=== PATIENT | female | born 1990 | race African-American/Black ===

== ENCOUNTER 2019-09-10 14:44 | Emergency (ER) | payer SELFPAY ==
--- NOTE | 2019-09-10 17:15 | ER Document Report ---
ED Medical Screen (RME) - General Chief Complaint: Chest Pain Stated Complaint: CHEST PAIN Time Seen by Provider: 09/10/19 17:05 Mode of Arrival: Ambulatory Information source: Patient Notes: 28-year-old female with prior history presents emergency department with complaints of left-sided chest pain that started this morning when she woke up. She reports that she was dizzy this past weekend. She reports pain comes and goes. Also complains of some epigastric pain. Denies history of cardiac disease. Denies family history of cardiac disease. Denies energy drinks. Denies recent trip. Patient is not on control. Respiratory rate even unlabored. TRAVEL OUTSIDE OF THE [place] IN LAST 30 DAYS: No - HPI Onset: This morning Onset/Duration: Sudden Quality of pain: Sharp Associated Symptoms: Dizzy/lightheaded Exacerbated by: Denies Relieved by: Denies Similar symptoms previously: No Recently seen / treated by doctor: No Past Medical History - General Information source: Patient Last Menstrual Period: 2 weeks ago - Social History Cigarette use (# per day): No - Has used vapes in the past Frequency of alcohol use: Social Drug Abuse: None Lives with: Family Family history: CAD - grandmother - Medical History Medical History: Negative Review of Systems - Review of Systems Notes: Review HPI for review of systems., All other systems negative Physical Exam - Vital signs Vitals: Temp Pulse Resp BP Pulse Ox 98.5 F 81 16 129/81 H 100 09/10/19 15:47 09/10/19 15:47 09/10/19 15:47 09/10/19 15:47 09/10/19 15:47 - Notes Notes: PHYSICAL EXAMINATION: GENERAL: Well-appearing and in no acute distress HEAD: Atraumatic, normocephalic. EYES: Pupils equal round and reactive to light, extraocular movements intact, sclera anicteric, conjunctiva are normal. ENT: nares patent, oropharynx clear without exudates. Moist mucous membranes. NECK: Normal range of motion, supple without lymphadenopathy LUNGS: CTAB and equal. No wheezes rales or rhonchi. HEART: Regular rate and rhythm without murmurs ABDOMEN: Soft, no tenderness. No guarding, no rebound EXTREMITIES: Normal range of motion, no pitting edema. No cyanosis. NEUROLOGICAL: Cranial nerves grossly intact. Normal sensory/motor exams. PSYCH: Normal mood, normal affect. SKIN: Warm, Dry, normal turgor, no rashes or lesions noted Course - Re-evaluation Re-evalutation: 09/10/19 18:36 Chest X-Ray 09/10/19 17:11 IMPRESSION: NO ACUTE RADIOGRAPHIC FINDING IN THE CHEST. 09/10/19 19:49 28-year-old female with no history of cardiac disease no family history of cardiac disease presents emergency department with left-sided rib pain. Denies recent trip. Denies fever vomiting diarrhea cough. Denies energy drinks denies drug use. Labs unremarkable chest x-ray negative, EKG with no ST elevation T wave inversion. Patient is at a very low risk for cardiac event. patient was instructed on all results. Instructed to follow-up with a primary care provider for referral to a senior manufacturing technician as indicated. She was also instructed to return here for concerns. She verbalized understanding to all instructions. Dictation of this chart was performed using voice recognition software; therefore, there may be some unintended grammatical errors. 09/10/19 18:00 09/10/19 18:00 MCV 90 fl (80-97) 09/10/19 18:00 MCH 29.8 pg (27.0-33.4) 09/10/19 18:00 MCHC 33.3 g/dL (32.0-36.0) 09/10/19 18:00 RDW 14.7 % (11.5-14.0) H 09/10/19 18:00 Seg Neutrophils % 67.1 % (42-78) 09/10/19 18:00 Chloride 102 mmol/L (98-107) 09/10/19 18:00 Carbon Dioxide 27 mmol/L (22-30) 09/10/19 18:00 Anion Gap 13 (5-19) 09/10/19 18:00 Est GFR ( Amer) > 60 (>60) 09/10/19 18:00 Glucose 96 mg/dL (75-110) 09/10/19 18:00 Calcium 10.1 mg/dL (8.4-10.2) 09/10/19 18:00 Total Bilirubin 0.4 mg/dL (0.2-1.3) 09/10/19 18:00 AST 17 U/L (14-36) 09/10/19 18:00 Alkaline Phosphatase 67 U/L (38-126) 09/10/19 18:00 Total Protein 8.2 g/dL (6.3-8.2) 09/10/19 18:00 Albumin 4.7 g/dL (3.5-5.0) 09/10/19 18:00 Urine Color YELLOW 09/10/19 18:00 Urine Appearance SLIGHTLY-CLOUDY 09/10/19 18:00 Urine pH 7.0 (5.0-9.0) 09/10/19 18:00 Ur Specific [place] 1.027 09/10/19 18:00 Urine Protein 30 mg/dL (NEGATIVE) H 09/10/19 18:00 Urine Glucose (UA) NEGATIVE mg/dL (NEGATIVE) 09/10/19 18:00 Urine Ketones NEGATIVE mg/dL (NEGATIVE) 09/10/19 18:00 Urine Blood NEGATIVE (NEGATIVE) 09/10/19 18:00 Urine Nitrite NEGATIVE (NEGATIVE) 09/10/19 18:00 Ur Leukocyte Esterase NEGATIVE (NEGATIVE) 09/10/19 18:00 Urine WBC (Auto) 1 /HPF 09/10/19 18:00 Urine RBC (Auto) 1 /HPF 09/10/19 18:00 09/10/19 09/10/19 18:00 18:00 Creatine Kinase 52 Troponin I < 0.012 09/10/19 19:51 - Vital Signs Vital signs: Temp Pulse Resp BP Pulse Ox 98.5 F 81 16 129/81 H 100 09/10/19 17:05 09/10/19 15:47 09/10/19 17:05 09/10/19 15:47 09/10/19 17:05 - Laboratory Result Diagrams: 09/10/19 18:00 09/10/19 18:00 Laboratory results interpreted by me: 09/10/19 09/10/19 18:00 18:00 RDW 14.7 H Urine Protein 30 H - Diagnostic Test Radiology reviewed: Reports reviewed - EKG Interpretation by Me EKG shows normal: Sinus rhythm Rate: Normal Rhythm: NSR Additional EKG results interpreted by me: 09/10/19 18:[address] elevation no T wave inversion Doctor's Discharge - Discharge Clinical Impression: Chest pain Qualifiers: Chest pain type: unspecified Qualified Code(s): R07.9 - Chest pain, unspecified Condition: Stable Disposition: HOME, SELF-CARE Instructions: Chest Pain of Unclear Cause ([facility]) Additional Instructions: *You have been evaluated for chest pain Your labs and chest x-ray were negative for an acute event *Follow up with a primary care provider within 1 week for recheck and referral to senior manufacturing technician as indicated *Return to ED for worsening condition, changes, needs *Return to ED if not better in 24 hours Forms: Elevated Blood Pressure
--- NOTE | 2019-09-10 18:19 | RADIOLOGY REPORT (SQ) ---
EXAM DESCRIPTION: CHEST 2 VIEWS COMPLETED DATE/TIME: 09/10/2019 5:52 pm REASON FOR STUDY: cp COMPARISON: None. EXAM PARAMETERS: NUMBER OF VIEWS: two views TECHNIQUE: Digital Frontal and Lateral radiographic views of the chest acquired. RADIATION DOSE: NA LIMITATIONS: none FINDINGS: LUNGS AND PLEURA: No opacities, masses or pneumothorax. No pleural effusion. MEDIASTINUM AND HILAR STRUCTURES: No masses or contour abnormalities. HEART AND VASCULAR STRUCTURES: Heart normal size. No evidence for failure. BONES: No acute findings. HARDWARE: None in the chest. OTHER: No other significant finding. IMPRESSION: NO ACUTE RADIOGRAPHIC FINDING IN THE CHEST. TECHNICAL DOCUMENTATION: JOB ID: [id number]- All Rights Reserved Reading location - IP/workstation name: [email or web address]
[2019-09-10 18:33] LABS: ABSOLUTE EOSINOPHILS # (AUTO) 0.1 10^3/uL (0.0-0.6); ABSOLUTE LYMPHOCYTES (AUTO) 2.2 10^3/uL (0.5-4.7); ABSOLUTE MONOCYTES (AUTO) 0.6 10^3/uL (0.1-1.4); ABSOLUTE NEUT (AUTO) 5.7 10^3/uL (1.7-8.2); BASOPHILS % (AUTO) 0.5 % (0-2); EOSINOPHILS % (AUTO) 0.6 % (0-6); HEMATOCRIT 37.5 % (36.0-47.0); HEMOGLOBIN 12.5 g/dL (12.0-15.5); LYMPHOCYTES % (AUTO) 25.2 % (13-45); MEAN CORPUSCULAR HEMOGLOBIN 29.8 pg (27.0-33.4); MEAN CORPUSCULAR HGB CONC 33.3 g/dL (32.0-36.0); MEAN CORPUSCULAR VOLUME 90 fl (80-97); MONOCYTES % (AUTO) 6.6 % (3-13); PLATELET COUNT 444 10^3/uL (150-450); RED BLOOD COUNT 4.18 10^6/uL (3.72-5.28); RED CELL DISTRIBUTION WIDTH 14.7 % (11.5-14.0); SEGMENTED NEUTROPHILS % (AUTO) 67.1 % (42-78); TOTAL CELLS COUNTED % (AUTO) 100 %; WHITE BLOOD COUNT 8.6 10^3/uL (4.0-10.5)
[2019-09-10 18:37] LABS: APPEARANCE,URINE SLIGHTLY-CLOUDY; BILIRUBIN,URINE NEGATIVE (NEGATIVE); COLOR,URINE YELLOW; GLUCOSE, URINE NEGATIVE (NEGATIVE); KETONES,URINE NEGATIVE (NEGATIVE); LEUKOCYTE ESTERASE,URINE NEGATIVE (NEGATIVE); NITRITE,URINE NEGATIVE (NEGATIVE); PROTEIN,URINE 30 mg/dL (NEGATIVE); URINE SPECIFIC GRAVITY 1.027; UROBILINOGEN,URINE NEGATIVE mg/dL (<2.0)
[2019-09-10 19:17] LABS: ALBUMIN 4.7 g/dL (3.5-5.0); ALKALINE PHOSPHATASE 67 U/L (38-126); ANION GAP 13 (5-19); ASPARTATE AMINO TRANSFERASE 17 U/L (14-36); BILIRUBIN,DIRECT 0.1 mg/dL (0.0-0.4); BILIRUBIN,TOTAL 0.4 mg/dL (0.2-1.3); BLOOD UREA NITROGEN 10 mg/dL (7-20); CALCIUM 10.1 mg/dL (8.4-10.2); CARBON DIOXIDE 27 mmol/L (22-30); CHLORIDE 102 mmol/L (98-107); CREATINE KINASE 52 U/L (30-135); GLUCOSE 96 mg/dL (75-110); POTASSIUM 4.3 mmol/L (3.6-5.0); TOTAL PROTEIN 8.2 g/dL (6.3-8.2)
[2019-09-10 20:46] VITALS: BP 103/77
--- NOTE | 2019-09-11 00:20 | EKG REPORT ---
SEVERITY:- NORMAL ECG - SINUS RHYTHM : Confirmed by: Nely Gutierres 11-Sep-2019 00:18:58
== END 2019-09-10 20:03 | disposition home or self-care (01) ==
LOC: ER 14:44
DX: R07.81 Pleurodynia (principal); R42 Dizziness and giddiness; R10.13 Epigastric pain; Z87.891 Personal history of nicotine dependence
CPT/HCPCS: 36415; 71046; 80053; 81001; 81025; 82550; 84484; 85025; 93005; 93010; 99285